=== PATIENT | female | born 1940 ===

== ENCOUNTER → 2019-08-02 | Outpatient (CLI) | payer MEDICARE, OTHER ==
[~2019-08-02] MED LIST: ALLERGY10 MG PO; ALLO100 PO; ASPI81CH PO; Aldactone25 MG PO; Aspir 8181 MG; BUDE.25; BUME1 PO; BUME2 PO; CALMAGZIN PO; CETI5 PO; CHOL10002 PO; CLIN300 PO; CLOB.05TC TOP; CYAFAPYR PO; EPOE20I; FISH1000; FURO40 PO; FURO80 PO; GABA100 PO; Humulin 70-30 V10 ML; INS70/30PN SUBQ; INSU7030P SC; INSUASPI SC; IRON325 MG PO; LAVAP17G PO; LISI5 PO; LOSA25 PO; MEROPENEM-1 GM/50 ML IV; METO2.5 PO; Meribin5 MG PO; Micro-K10 MEQ PO; NORT25 PO; OMEP20ER PO; ONDA4ODT SL; ONE DAILY COMP1 EACH PO; POTA10T; POTA10T PO; POTCHL10ER PO; Renal Caps Softg1 MG PO; TRIA80TC TOP; Vitamin C1000 M1 PO
== END | disposition home or self-care (01) ==
LOC: PLD 08:50 → LAB SHORT 08:50
DX: L72.9 Follicular cyst of the skin and subcutaneous tissue, unspecified (principal)
CPT/HCPCS: 88305

== ENCOUNTER → 2019-12-05 | Outpatient (CLI) | payer MEDICARE ==
[2019-12-05 15:17] LABS: Appearance, Urine Clear (Clear); Bilirubin, Urine Neg (Neg); Blood, Urine Neg (Neg); Color, Urine Yellow (P-Yellow); Glucose Qualitative, Urine Neg (Neg); Ketones, Urine Neg (Neg); Leukocyte Esterase, Urine 3+ (Neg); Nitrite, Urine Neg (Neg); Protein, Urine 1+ (Neg); Urobilinogen, Urine NORM (Normal)
[2019-12-05 15:28] LABS: Bacteria Few /hpf; Red Blood Cells, Urine 0-2 /hpf (0-2); Squamous Epithelial Cells Rare /hpf (Few); Transitional Epithelial Cells Few /hpf (0-Rare)
== END | disposition home or self-care (01) ==
LOC: LAB 12:32 → LAB SHORT 12:32
PROVIDERS: Internal Medicine Hematology & Oncology
DX: N39.0 Urinary tract infection, site not specified (principal)
CPT/HCPCS: 81001; 87086

== ENCOUNTER 2019-12-12 10:48 | Inpatient (IN) | payer MEDICARE, OTHER ==
[~2019-12-12] VITALS: Ht 160 cm; Wt 78.4 kg
[~2019-12-12 10:48] MED LIST changes: +Hair, Skin & N1 EACH PO; -Humulin 70-30 V10 ML; -LAVAP17G PO; +MIRALAX17 GM PO; +NOVOLIN 70100 UNIT/1 SC; -ONE DAILY COMP1 EACH PO
[2019-12-12 12:20] LABS: BASOPHILS ABSOLUTE AUTO 0.04 K/mm3 (0.00-0.23); BASOPHILS PERCENT AUTO 1 % (0-2); EOSINOPHILS ABSOLUTE AUTO 0.09 K/mm3 (0.00-0.68); EOSINOPHILS PERCENT AUTO 1 % (0-6); Hematocrit 41.9 % (33.0-51.0); Hemoglobin 13.3 g/dL (11.5-16.0); IMMATURE GRAN ABSOLUTE AUTO 0.06 K/mm3 (0.00-0.10); IMMATURE GRAN PERCENT AUTO 1 % (0-1); LYMPHOCYTES ABSOLUTE AUTO 1.09 K/mm3 (0.84-5.20); LYMPHOCYTES PERCENT AUTO 12 % (21-46); MONOCYTES ABSOLUTE AUTO 0.56 K/mm3 (0.16-1.47); MONOCYTES PERCENT AUTO 6 % (4-13); Mean Corpuscular HGB 29.2 pg (26.0-34.0); Mean Corpuscular HGB Conc 31.7 g/dL (31.5-36.5); Mean Corpuscular Volume 92 fL (80-100); Mean Platelet Volume 11.6 fL (9.1-12.4); NEUTROPHILS ABSOLUTE AUTO 6.94 K/mm3 (1.96-9.15); NEUTROPHILS PERCENT AUTO 79 % (41-73); Platelet Count 225 K/mm3 (150-400); RDW Coefficient Variation 15.7 % (11.7-14.2); RDW Standard Deviation 53.1 fL (35.1-46.3); Red Blood Cell Count 4.55 M/mm3 (3.80-5.20); White Blood Cell Count 8.78 K/mm3 (4.00-11.30)
[2019-12-12 12:22] LABS: Influenza A Negative (NEGATIVE); Influenza B Negative (NEGATIVE)
[2019-12-12 12:53] LABS: Troponin I 0.037 ng/mL (0.000-0.040)
[2019-12-12 12:54] LABS: Albumin, Blood 3.6 g/dL (3.4-5.0); Albumin/Globulin Ratio 0.6 (0.8-1.8); Bilirubin, Total 0.4 mg/dL (0.1-1.0); Bun/Creatinine Ratio 56.4 (12.0-20.0); Creatinine, Blood 2.18 mg/dL (0.40-1.00); Globulin, Blood 5.9 g/dL (2.2-4.0); Potassium, Blood 2.8 mmol/L (3.5-5.5); Total Protein, Blood 9.5 g/dL (6.4-8.2)
[2019-12-12 12:56] LABS: Calcium, Blood 14.1 mg/dL (8.5-10.1)
[2019-12-12 13:51] LABS: Source, Urine Clean Catch
[2019-12-12 14:12] LABS: Bilirubin, Urine Neg (Neg); Blood, Urine Neg (Neg); Glucose Qualitative, Urine Neg (Neg); Ketones, Urine Neg (Neg); Leukocyte Esterase, Urine 3+ (Neg); Nitrite, Urine Neg (Neg); Protein, Urine Neg (Neg); Specific Gravity, Urine 1.015 (1.003-1.022); Urobilinogen, Urine NORM (Normal)
[2019-12-12 14:19] LABS: Appearance, Urine Hazy (Clear); Color, Urine Yellow (P-Yellow)
[2019-12-12 14:20] LABS: Red Blood Cells, Urine 0-2 /hpf (0-2); Squamous Epithelial Cells Few /hpf (Few)
[2019-12-12 14:21] LABS: Bacteria Few /hpf; Transitional Epithelial Cells Rare /hpf (0-Rare)
[2019-12-12] MEDS ORDERED: Bumetanide2 MG PO (14:39)
[2019-12-12 14:48] LABS: Magnesium, Blood 2.6 mg/dL (1.6-2.4); Phosphorus, Blood 3.1 mg/dL (2.5-4.9)
[2019-12-12] MEDS ORDERED: FERSU300 PO (14:54)
[2019-12-12] MEDS ORDERED: Aranesp60 MCG/0.3 INJ (17:19)
[2019-12-12 19:16] LABS: Albumin, Blood 3.3 g/dL (3.4-5.0); Albumin/Globulin Ratio 0.6 (0.8-1.8); Bilirubin, Total 0.3 mg/dL (0.1-1.0); Bun/Creatinine Ratio 69.3 (12.0-20.0); Calcium, Blood 13.5 mg/dL (8.5-10.1); Creatinine, Blood 1.53 mg/dL (0.40-1.00); Globulin, Blood 5.5 g/dL (2.2-4.0); Potassium, Blood 3.2 mmol/L (3.5-5.5); Total Protein, Blood 8.8 g/dL (6.4-8.2)
--- NOTE | 2019-12-12 19:32 | NUR ---
PT ARRIVED TO THE MEDICAL FLOOR FROM THE ER VIA [id number] A/[id number], PLEASANT AND COOPERATIVE, PT WAS TRANSFERED TO THE BED, PT REPORTED BEING TO WEAK TO STAND AND TRANSFER AT THIS TIME, PT APPEARS TO BE BREATHING EASILY ON RA AT THIS TIME, THE PT WAS ORIENTED TO THE ROOM LAYOUT AND CALL SYSTEM, CALL LIGHT IN REACH, PT ANSWERED QUESTIONS APPROPRIATLY
[2019-12-12 22:22] LABS: Adenovirus Not Detected (NOT DETECT); Bordetella pertussis Not Detected (NOT DETECT); Chlamydophila pneumoniae Not Detected (NOT DETECT); Coronavirus 229E Not Detected (NOT DETECT); Coronavirus HKU1 Not Detected (NOT DETECT); Coronavirus NL63 Not Detected (NOT DETECT); Coronavirus OC43 Not Detected (NOT DETECT); Human Metapneumovirus Not Detected (NOT DETECT); Human Rhinovirus/Enterovirus Not Detected (NOT DETECT); Influenza A/2009-H1 Not Detected (NOT DETECT); Influenza A/H1 Not Detected (NOT DETECT); Influenza A/H3 Not Detected (NOT DETECT); Influenza B Not Detected (NOT DETECT); Mycoplasma pneumoniae Not Detected (NOT DETECT); Parainfluenza Virus 1 Not Detected (NOT DETECT); Parainfluenza Virus 2 Not Detected (NOT DETECT); Parainfluenza Virus 3 Not Detected (NOT DETECT); Parainfluenza Virus 4 Not Detected (NOT DETECT); Respiratory Syncytial Virus Not Detected (NOT DETECT)
[2019-12-13] MEDS ORDERED: MELATONIN5 M1 PO (00:22)
--- NOTE | 2019-12-13 00:50 | NUR ---
ESAU Zavala updated PT unable to sleep and her complaints of constipation last BM on Wednesday, poor appetite, and pressure sore sacral area on admission. Orders obtained. Called DR Dory Hayes for consult orders taken and PT bladder scanned for 30 ml post void residual. UA done in Er positive C & S pending. PT made NPO for renal ultrasound in AM. Weak and has hacking cough. negative for influenza A resp panel pending results. Critical calcium level was called to Sally and DR Hayes. Continues in IV fluid NS at 100 ml hr.
[2019-12-13 05:34] LABS: BASOPHILS ABSOLUTE AUTO 0.04 K/mm3 (0.00-0.23); BASOPHILS PERCENT AUTO 1 % (0-2); EOSINOPHILS ABSOLUTE AUTO 0.15 K/mm3 (0.00-0.68); EOSINOPHILS PERCENT AUTO 2 % (0-6); Hematocrit 38.5 % (33.0-51.0); Hemoglobin 12.2 g/dL (11.5-16.0); IMMATURE GRAN ABSOLUTE AUTO 0.04 K/mm3 (0.00-0.10); IMMATURE GRAN PERCENT AUTO 1 % (0-1); LYMPHOCYTES ABSOLUTE AUTO 0.86 K/mm3 (0.84-5.20); LYMPHOCYTES PERCENT AUTO 12 % (21-46); MONOCYTES ABSOLUTE AUTO 0.54 K/mm3 (0.16-1.47); MONOCYTES PERCENT AUTO 8 % (4-13); Mean Corpuscular HGB 29.6 pg (26.0-34.0); Mean Corpuscular HGB Conc 31.7 g/dL (31.5-36.5); Mean Corpuscular Volume 93 fL (80-100); Mean Platelet Volume 12.5 fL (9.1-12.4); NEUTROPHILS ABSOLUTE AUTO 5.57 K/mm3 (1.96-9.15); NEUTROPHILS PERCENT AUTO 77 % (41-73); Platelet Count 199 K/mm3 (150-400); RDW Coefficient Variation 15.8 % (11.7-14.2); RDW Standard Deviation 54.4 fL (35.1-46.3); Red Blood Cell Count 4.12 M/mm3 (3.80-5.20)
[2019-12-13 05:55] LABS: Albumin, Blood 2.8 g/dL (3.4-5.0); Albumin/Globulin Ratio 0.6 (0.8-1.8); Bilirubin, Total 0.3 mg/dL (0.1-1.0); Bun/Creatinine Ratio 65.2 (12.0-20.0); Calcium, Blood 12.5 mg/dL (8.5-10.1); Creatinine, Blood 1.38 mg/dL (0.40-1.00); Magnesium, Blood 1.9 mg/dL (1.6-2.4); Phosphorus, Blood 1.8 mg/dL (2.5-4.9); Potassium, Blood 3.6 mmol/L (3.5-5.5); Total Protein, Blood 7.8 g/dL (6.4-8.2)
--- NOTE | 2019-12-13 06:32 | NUR ---
79 year old Female with acute kidney injury with stage [address] disease [address] DR Hayes every 2 weeks. Recent URI and UTI s/sx/ UA positive C & S pending. PT currently NPO for scheduled renal ultrasound. PT very weak, up to bs commode with extensive assist gait belt FWW. PT has dry hacking nonproductive cough, low grade temp. Critical calcium level trending down. DR Hayes consulted in to see PT. PT has psychosocial stressors related to adult Children and Grandchildren. Support offered. PT NS IVF rate decreased to [address] Hayes order. PT has hx of skin issues has stage 2 decub on admission . Wound care provided. PT has seen wound clinic in past for same issues, PT says decub present x 1 week prior to admission. Alevyn foam to sacrum placed. to [facility] for 65 years. Continue to assess.
--- NOTE | 2019-12-13 20:36 | NUR ---
ASSUMED CARE OF THE PATIENT. TK WAS SITTING UP IN HER CHAIR WATCHING TV. STATES SHE SLIGHTLY NAUSEATED AND DOES NOT FEEL GOOD. SHE BARELY AT DINNER DUE TO UPSET STOMACH. VS ALL LOOK GOOD, AFEBRILE. ADMINISTER NIGHT MEDS, WILL PULL ZOFRAN. LUNG SOUNDS DIMINISHED BUT DOES HAVE SOME WHEEZES IN UPPER LOBES. NO COUGH AT THIS MOMENT. EDEMA NOTED TO BLE. ENCOURAGE TO PUT THEM UP. ASSISTED HER BACK TO BED FOR THE NIGHT. 24 HOUR URINE IN PROGRESS, SHE KNOWS TO CALL FOR ASSISTANCE TO GET UP TO BSC. USES WALKER WITH A GAIT BELT. CALL LIGHT IN REACH.
[2019-12-14 04:54] LABS: BASOPHILS ABSOLUTE AUTO 0.04 K/mm3 (0.00-0.23); BASOPHILS PERCENT AUTO 1 % (0-2); EOSINOPHILS ABSOLUTE AUTO 0.07 K/mm3 (0.00-0.68); EOSINOPHILS PERCENT AUTO 1 % (0-6); Hematocrit 35.5 % (33.0-51.0); Hemoglobin 11.2 g/dL (11.5-16.0); IMMATURE GRAN ABSOLUTE AUTO 0.03 K/mm3 (0.00-0.10); IMMATURE GRAN PERCENT AUTO 0 % (0-1); LYMPHOCYTES ABSOLUTE AUTO 1.05 K/mm3 (0.84-5.20); LYMPHOCYTES PERCENT AUTO 14 % (21-46); MONOCYTES ABSOLUTE AUTO 0.45 K/mm3 (0.16-1.47); MONOCYTES PERCENT AUTO 6 % (4-13); Mean Corpuscular HGB 29.7 pg (26.0-34.0); Mean Corpuscular HGB Conc 31.5 g/dL (31.5-36.5); Mean Corpuscular Volume 94 fL (80-100); Mean Platelet Volume 11.4 fL (9.1-12.4); NEUTROPHILS ABSOLUTE AUTO 5.75 K/mm3 (1.96-9.15); NEUTROPHILS PERCENT AUTO 78 % (41-73); Platelet Count 189 K/mm3 (150-400); RDW Coefficient Variation 16.1 % (11.7-14.2); RDW Standard Deviation 55.3 fL (35.1-46.3); Red Blood Cell Count 3.77 M/mm3 (3.80-5.20); White Blood Cell Count 7.39 K/mm3 (4.00-11.30)
--- NOTE | 2019-12-14 05:04 | NUR ---
SHIFT SUMMARY: TK WAS COOPERATIVE IN HER CARE. SHE DID NOT FEEL WELL THROUGHOUT THE NIGHT, SHE WAS TIRED AND FATIQUED. SHE ALSO HAS OFF AND ON NAUSEA. ZOFRAN WAS GIVEN ONCE. NO EMESIS NOTED. 24 HOUR URINE PROCEDES, WILL END AT 10AM TODAY. SHE HAS BEEN VOIDING WELL THROUGHOUT THE NIGHT [place] [facility] [place] [facility] SLEPT OFF AND ON. STAGE 2 PRESSURE ULCER TO BUTTOCKS DRESSED AND INTACT, HEALING SLOWLY. IV CONTINUES TO INFUSE AT 50ML/HR. VS WNL. NO PAIN NOTED THIS SHIFT. NO OTHER CHANGES TO REPORT THIS SHIFT.
[2019-12-14 05:18] LABS: Albumin, Blood 2.7 g/dL (3.4-5.0); Anion Gap 2 mmol/L (6-16); Blood Urea Nitrogen 56 mg/dL (8-24); Bun/Creatinine Ratio 45.9 (12.0-20.0); CO2, Blood 34 mmol/L (21-32); Calcium, Blood 11.8 mg/dL (8.5-10.1); Chloride, Blood 104 mmol/L (98-108); Creatinine, Blood 1.22 mg/dL (0.40-1.00); Glomerular Filtration Rate 45 (60-); Glucose, Blood 229 mg/dL (70-99); Magnesium, Blood 1.6 mg/dL (1.6-2.4); Phosphorus, Blood 2.2 mg/dL (2.5-4.9); Potassium, Blood 3.8 mmol/L (3.5-5.5); Sodium, Blood 140 mmol/L (136-145)
[2019-12-14 05:30] LABS: Cortisol, AM 16.9 ug/dL (6.7-22.6)
--- NOTE | 2019-12-14 07:50 | NUR ---
DR. HAMMOND STOPPED BY TO SEE THE PATIENT. VERBAL ORDER RECEIVED FOR PROTONIX AND AMPHOGEL. PROTONIX GIVEN ALONG WITH ZOFRAN DUE TO NAUSEA.
--- NOTE | 2019-12-14 08:33 | NUR ---
CHARTING [employer]HT[employer] WORKER 2 STUDENT
[2019-12-14 10:49] LABS: Protein, Urine Quantitative 15.6 mg/dL (0.0-11.9)
--- NOTE | 2019-12-14 22:14 | NUR ---
PATIENT RESTING IN BED. DENIES PAIN, SOB, AND N/V. NS INFUSING AT 50 mL/HR. CALL LIGHT IN REACH.
--- NOTE | 2019-12-15 03:30 | NUR ---
SHIFT SUMMARY PATIENT HAD N/V X ONE. IV REGLAN GIVEN PER EMAR. PATIENT REPORTED REDUCED N/V. AXOX 4 AND ONE ASSIST TO BR W/FWW. PIV REMAINS INTACT. NS INFUSING AT 50 mL/HR. ABLE TO SLEEP MOST OF THE SHIFT. VSS/AFEBRILE. DENIES PAIN AND SOB. COOPERATIVE WITH CARE. CALL LIGHT IN REACH. BED IN LOWEST POSITION. WILL CONTINUE TO MONITOR UNTIL DAY SHIFT NURSE ASSUMES CARE.
[2019-12-15 05:17] LABS: BASOPHILS ABSOLUTE AUTO 0.04 K/mm3 (0.00-0.23); BASOPHILS PERCENT AUTO 1 % (0-2); EOSINOPHILS PERCENT AUTO 1 % (0-6); Hematocrit 36.7 % (33.0-51.0); Hemoglobin 11.4 g/dL (11.5-16.0); IMMATURE GRAN ABSOLUTE AUTO 0.03 K/mm3 (0.00-0.10); IMMATURE GRAN PERCENT AUTO 0 % (0-1); LYMPHOCYTES ABSOLUTE AUTO 1.18 K/mm3 (0.84-5.20); LYMPHOCYTES PERCENT AUTO 14 % (21-46); MONOCYTES ABSOLUTE AUTO 0.52 K/mm3 (0.16-1.47); MONOCYTES PERCENT AUTO 6 % (4-13); Mean Corpuscular HGB 29.4 pg (26.0-34.0); Mean Corpuscular HGB Conc 31.1 g/dL (31.5-36.5); Mean Corpuscular Volume 95 fL (80-100); Mean Platelet Volume 11.7 fL (9.1-12.4); NEUTROPHILS ABSOLUTE AUTO 6.36 K/mm3 (1.96-9.15); NEUTROPHILS PERCENT AUTO 77 % (41-73); Platelet Count 171 K/mm3 (150-400); RDW Coefficient Variation 16.2 % (11.7-14.2); RDW Standard Deviation 56.2 fL (35.1-46.3); Red Blood Cell Count 3.88 M/mm3 (3.80-5.20); White Blood Cell Count 8.23 K/mm3 (4.00-11.30)
[2019-12-15 05:43] LABS: Albumin, Blood 2.8 g/dL (3.4-5.0); Anion Gap 4 mmol/L (6-16); Blood Urea Nitrogen 34 mg/dL (8-24); Bun/Creatinine Ratio 31.5 (12.0-20.0); CO2, Blood 33 mmol/L (21-32); Chloride, Blood 106 mmol/L (98-108); Creatinine, Blood 1.08 mg/dL (0.40-1.00); Glomerular Filtration Rate 52 (60-); Glucose, Blood 212 mg/dL (70-99); Magnesium, Blood 1.6 mg/dL (1.6-2.4); Phosphorus, Blood 1.5 mg/dL (2.5-4.9); Potassium, Blood 3.7 mmol/L (3.5-5.5); Sodium, Blood 143 mmol/L (136-145)
--- NOTE | 2019-12-15 08:10 | NUR ---
PT PLEASANT COOP A/O, DENIES PIAN. IN TO VISIT. LIVES ANNABEL. H/R REG, YES MURMER NOTED. NO TELE. LUNGS CLEAR UPPER BUT LIGHT CRACKLES IN BASES. RESP EASY UNLABORED ON R.A. BRT X4 LAST BM LAST NITE. VIODS 1 ASST TO BSC.BED IN LOW POSITION, CALL LITE IN [facility], CALLS APPROP
[2019-12-15] MEDS ORDERED: ACET325 PO (08:54)
[2019-12-15] MEDS ORDERED: BISA10S PR (08:55)
[2019-12-15] MEDS ORDERED: Calcitonin-Sal3.7 ML (08:56)
[2019-12-15] MEDS ORDERED: DOCU100 PO (08:57)
[2019-12-15] MEDS ORDERED: ONDA4ODT MM (08:58)
[2019-12-15] MEDS ORDERED: PANT40 PO (08:59)
[2019-12-15] MEDS ORDERED: SENN187 PO (09:00)
--- NOTE | 2019-12-15 14:05 | NUR ---
PT IV PULLED INTACT. NO TELE. DISCHARGE REVIEWED WITH PT . SHE VERBALIZED UNDERSTANDING OF MEDS AND INSTRUCTIONS. MEDS TO [facility]. PT OUT DOOR WITH AND AIDE AT 1400
[2019-12-18 14:08] LABS: M-SPIKE, % Not Observed % (Not Observed); PROTEIN,TOTAL,URINE 11.1 mg/dL (Not Estab.)
[2019-12-18 15:08] LABS: A/G RATIO 0.8 (0.7-1.7); ALBUMIN 2.9 g/dL (2.9-4.4); ALPHA-1-GLOBULIN 0.2 g/dL (0.0-0.4); ALPHA-2-GLOBULIN 1.1 g/dL (0.4-1.0); BETA GLOBULIN 0.9 g/dL (0.7-1.3); GAMMA GLOBULIN 1.8 g/dL (0.4-1.8); GLOBULIN, TOTAL 3.9 g/dL (2.2-3.9); IMMUNOGLOBULIN A, QN, SERUM 313 mg/dL (64-422); IMMUNOGLOBULIN G, QN, SERUM 1731 mg/dL (700-1600); IMMUNOGLOBULIN M, QN, SERUM 131 mg/dL (26-217); M-SPIKE Not Observed g/dL (Not Observed); PROTEIN, TOTAL, SERUM 6.8 g/dL (6.0-8.5)
== END 2019-12-15 14:00 | disposition home health service (06) | DRG 683 ==
LOC: ER 10:48 → MEDS 16:38 → ENPENDDIS 12-15 10:00 → MEDS 12-15 14:00
PROVIDERS: Internal Medicine Nephrology; Nurse Practitioner Acute Care; Physician Assistant; ADMIT Family Medicine
DX: N17.9 Acute kidney failure, unspecified (principal); E87.1 Hypo-osmolality and hyponatremia; I12.9 Hypertensive chronic kidney disease with stage 1 through stage 4 chronic kidney disease, or unspecified chronic kidney disease; E11.22 Type 2 diabetes mellitus with diabetic chronic kidney disease; Z79.4 Long term (current) use of insulin; E87.6 Hypokalemia; E83.52 Hypercalcemia; E83.39 Other disorders of phosphorus metabolism; D63.1 Anemia in chronic kidney disease; E66.01 Morbid (severe) obesity due to excess calories; M10.9 Gout, unspecified; N18.3 Chronic kidney disease, stage 3 (moderate); N25.81 Secondary hyperparathyroidism of renal origin; E86.9 Volume depletion, unspecified; E88.09 Other disorders of plasma-protein metabolism, not elsewhere classified; E86.0 Dehydration
CPT/HCPCS: 0099U; 36415; 71046; 74176; 80053; 80069; 81001; 81050; 82164; 82306; 82397; 82533; 82652; 82784; 82947; 83735; 83970; 84100; 84156; 84165; 84166; 84443; 84484; 84550; 85025; 86334; 86335; 87086; 87804; 90686; 93005; 93010; 93975; 96360; 96361; 97110; 97116; 97162; 97165; 97530; 97535; 99285-25; C9113; G0008; J0630; J1644; J2405; J2765; J7030; J7060

== ENCOUNTER → 2020-07-04 | Outpatient (CLI) | payer MEDICARE, OTHER ==
[~2020-07-04] MED LIST changes: +ACET325 PO; +Aranesp60 MCG/0.3 INJ; +BISA10S PR; +Bumetanide2 MG PO; +Calcitonin-Sal3.7 ML; +DOCU100 PO; +FERSU300 PO; +MELATONIN5 M1 PO; +ONDA4ODT MM; +PANT40 PO; +SENN187 PO
[2020-07-05 12:10] LABS: Bilirubin, Urine Neg (Neg); Blood, Urine Neg (Neg); Glucose Qualitative, Urine Neg (Neg); Ketones, Urine Neg (Neg); Leukocyte Esterase, Urine 1+ (Neg); Nitrite, Urine Neg (Neg); Protein, Urine Neg (Neg); Specific Gravity, Urine 1.015 (1.003-1.022); Urobilinogen, Urine NORM (Normal)
[2020-07-05 12:34] LABS: Appearance, Urine Clear (Clear); Color, Urine Yellow (P-Yellow)
[2020-07-05 12:36] LABS: Red Blood Cells, Urine 0-2 /hpf (0-2)
[2020-07-05 12:37] LABS: Bacteria Rare /hpf; Squamous Epithelial Cells Rare /hpf (Few)
== END | disposition home or self-care (01) ==
LOC: LAB 13:24 → LAB SHORT 13:24
PROVIDERS: Internal Medicine Hematology & Oncology
DX: R39.89 Other symptoms and signs involving the genitourinary system (principal)
CPT/HCPCS: 81001; 87086

== ENCOUNTER → 2022-07-24 | Outpatient (CLI) | payer MEDICARE, OTHER ==
[~2022-07-24] MED LIST changes: +ATOR20 PO; +C COMPLEX1000 M1 PO; +[UNRECOGNIZED DRUG - CODE] SC
[2022-07-24 14:00] LABS: Source, Urine Voided
[2022-07-24 15:00] LABS: Appearance, Urine Clear (Clear); Bilirubin, Urine Neg (Neg); Blood, Urine Neg (Neg); Color, Urine Yellow (P-Yellow); Glucose Qualitative, Urine Neg (Neg); Ketones, Urine Neg (Neg); Leukocyte Esterase, Urine 2+ (Neg); Nitrite, Urine Neg (Neg); Protein, Urine Neg (Neg); Urobilinogen, Urine NORM (Normal)
[2022-07-24 15:26] LABS: Bacteria Few /hpf; Red Blood Cells, Urine 0-2 /hpf (0-2); Squamous Epithelial Cells Few /hpf (Few)
== END | disposition home or self-care (01) ==
LOC: LAB 13:58 → LAB SHORT 13:58
PROVIDERS: Internal Medicine Hematology & Oncology
DX: R39.89 Other symptoms and signs involving the genitourinary system (principal)
CPT/HCPCS: 81001; 87086

== ENCOUNTER → 2022-09-01 | Outpatient (CLI) | payer MEDICARE, OTHER ==
[2022-09-01 19:23] LABS: Percent Saturation 16.5 % (15.0-50.0)
== END | disposition home or self-care (01) ==
LOC: LAB SHORT 16:37
PROVIDERS: Internal Medicine Hematology & Oncology
DX: D64.9 Anemia, unspecified (principal)
CPT/HCPCS: 82728; 83540; 83550

== ENCOUNTER 2022-10-07 00:21 | Day surgery (SDC) | payer MEDICARE, OTHER | END 2022-10-07 23:05 | disposition home or self-care (01) | LOC: WOUND 00:21 | DX: L89.322 Pressure ulcer of left buttock, stage 2 (principal); E11.40 Type 2 diabetes mellitus with diabetic neuropathy, unspecified | CPT/HCPCS: G0463 ==

== ENCOUNTER 2022-10-20 01:22 | Day surgery (SDC) | payer MEDICARE, OTHER | END 2022-10-20 22:43 | disposition home or self-care (01) | LOC: WOUND 01:22 | DX: L89.322 Pressure ulcer of left buttock, stage 2 (principal); E11.40 Type 2 diabetes mellitus with diabetic neuropathy, unspecified | CPT/HCPCS: A9270; G0463 ==

== ENCOUNTER → 2023-03-16 | Outpatient (CLI) | payer MEDICARE, OTHER ==
[2023-03-16 17:23] LABS: Source, Urine Voided
[2023-03-16 18:12] LABS: Appearance, Urine Clear (Clear); Bilirubin, Urine Neg (Neg); Blood, Urine Neg (Neg); Color, Urine Yellow (P-Yellow); Glucose Qualitative, Urine Neg (Neg); Ketones, Urine Neg (Neg); Leukocyte Esterase, Urine 1+ (Neg); Nitrite, Urine Neg (Neg); Protein, Urine 1+ (Neg); Specific Gravity, Urine 1.015 (1.003-1.022); Urobilinogen, Urine NORM (Normal)
[2023-03-16 18:34] LABS: Bacteria Mod /hpf; Red Blood Cells, Urine 0-2 /hpf (0-2); Squamous Epithelial Cells Few /hpf (Few)
== END | disposition home or self-care (01) ==
LOC: LAB SHORT 14:18 → LAB 14:18
PROVIDERS: Internal Medicine Hematology & Oncology
DX: R39.89 Other symptoms and signs involving the genitourinary system (principal)
CPT/HCPCS: 81001; 87086